=== PATIENT | female | born 1960 | race Caucasian/White ===

== ENCOUNTER → 2016-07-28 | Outpatient (CLI) | payer MEDICARE, OTHER ==
[~2016-07-28] MED LIST: ACETAMINOPHEN PO; ADVAIR; ADVAIR 2501 DISK W/D; ALBUTEROL17 GM INH; ALPRAZOLAM; ALPRAZOLAM PO; AMITRYPTYLINE; AMITRYPTYLINE PO; ATARAX PO; AVELOX400 M1 PO; BACTROBAN15 GM TOP; BACTROBAN22 GM EXT; BD INSULIN MC; CIPRO PO; CIPRO250 MG PO; CLINDAMYCIN PH600 MG IM; COLACE PO; COMBIVENT INH14.7 GM; COMBIVENT U/D3 ML INH; DEPAKOTE PO; DIFLUCAN100 MG PO; DILAUDID PO; DILAUDID2 MG PO; DULCOLAX5 MG PO; DUONEB 2.5-0.5 M3 ML; DUONEB 2.5-0.5 M3 ML NEB; EFFEXOR PO; ELIMITE60 GM TOP; FLAGYL PO; FLEXERIL10 MG PO; GABAPENTIN400 M2 PO; HYDROCODON-ACE1 EAC5 PO; HYDROCODONE-APA1 T41; IBUPROFEN400 MG PO; KCL PO; KLONOPIN; KLONOPIN PO; KLONOPIN2 MG PO; LANTUS100 U/ML; LANTUS100 U/ML SUBQ; LEVAQUIN PO; LEVAQUIN750 MG PO; LEVOTHROID200 MCG PO; LEVOTHYROXINE50 MCG PO; LISINOPRIL2.5 MG PO; LISINOPRIL20 MG PO; LOMOTIL TABLET1 TAB PO; LORCET 10/650 T1 TAB PO; LORTAB 10/500 T1 TAB; LORTAB 5/500 TA1 TA1 PO; LORTAB 5/500 TA1 TA2 PO; MACROBID100 M1 PO; MAPAP325 MG PO; METFORMIN PO; NARCO; NEURONTIN600 MG DOB; NORCO 10/325 TA1 TAB PO; ORUDIS75 M1 DOB; PAXIL PO; PAXIL10 MG PO; PERCOCET 10/3251 TAB PO; PERCOCET PO; PERCOCET10 PO; PERCOCET5/325 PO; PREDNISONE PO; PREMARIN; PREMARIN PO; PROTONIX PO; PROZAC PO; PROZAC10 M1 PO; PYRIDIUM PO; REGLAN PO; SEROQUEL; SEROQUEL PO; SEROQUEL400 MG PO; SYMBICORT INH; SYNTHROID; SYNTHROID PO; VANCOMYCIN1 GM/100 M; VISTARIL PO; XANAX0.5 M1 PO; ZITHROMAX1 G/PKT PO; ZOFRAN PO; [UNRECOGNIZED DRUG - OTHER]; [UNRECOGNIZED DRUG - REMARK]
--- NOTE | ~2016-07-28 | EKG ---
PATIENT: RISHI HIGUERA UNIT #: [id number] Ventricular Rate: 73 BPM Atrial Rate: 73 BPM P-R Interval: 156 ms QRS Duration: 66 ms Q-T Interval: 390 ms QTC Calculation(Bezet): 429 ms P [place]: 75 degrees Calculated R [place]: 27 degrees Calculated T [place]: 53 degrees Diagnosis Line: Normal sinus rhythm Diagnosis Line: Possible Left atrial enlargement Diagnosis Line: Borderline ECG Diagnosis Line: When compared with ECG of 13-SEP-2015 05:19, Diagnosis Line: No significant change was found Diagnosis Line: Confirmed by ALDA DOW MD ([id number]) on Diagnosis Line: 07/28/2016 12:14:55 PM INTERPRETING MD: KEYA
[2016-07-28 13:03] LABS: HEMOGLOBIN 10.9 gm/dL (12.0-16.0); MEAN CELL VOLUME 86.1 FL (83-96); MEAN CORPUSCULAR HEMOGLOBIN 28.5 PG (28-34); MEAN CORPUSCULAR HGB CONC 33.1 g/dL (30-36); MEAN PLATELET VOLUME 8.7 FL (6.5-11.5); RED BLOOD COUNT 3.83 X10e (3.90-5.30); RED CELL DISTRIBUTION WIDTH 15.2 % (11.0-15.5); WHITE BLOOD COUNT 5.8 X10e3 (4.0-10.5)
[2016-07-28 13:53] LABS: ALBUMIN SERUM 3.1 g/dL (3.5-5.0); ALKALINE PHOSPHATASE 84 U/L (32-92); ALT (SGPT) 17 U/L (10-40); AST (SGOT) 25 U/L (10-42); BILIRUBIN,TOTAL 0.3 mg/dL (0.2-2.0); BLOOD UREA NITROGEN 17 mg/dL (9-23); BUN/CREATININE RATIO 21.25; CALCIUM SERUM 8.4 mg/dL (8.4-10.2); CARBON DIOXIDE 29 mmol/L (22-31); CHLORIDE 99 mmol/L (100-111); CREATININE SERUM 0.8 mg/dL (0.6-1.4); GLOM FILT RATE Estimated ABOVE60 mL/min (>60); GLUCOSE FASTING 91 mg/dL (70-110); POTASSIUM 4.2 mmol/L (3.5-5.1); PROTEIN TOTAL SERUM 7.5 g/dL (6.0-8.3); SODIUM 134 mmol/L (135-145)
== END | disposition home or self-care (01) ==
LOC: CAMB 11:38
PROVIDERS: Specialist
DX: Z01.818 Encounter for other preprocedural examination (principal); K43.2 Incisional hernia without obstruction or gangrene
CPT/HCPCS: 36415; 80053; 85027; 93005

== ENCOUNTER 2016-08-01 22:13 | Inpatient (IN) | payer MEDICARE, OTHER ==
--- NOTE | ~2016-08-01 | CO ---
Unit #: [id number] #: [id number] Patient: RISHI HIGUERA [id number] [address] [place], [place] [address] [id number] I MR#: [id number] NAME: RISHI HIGUERA ROOM: [facility] Age: 56 Sex: F Admission Date: 08/02/2016 : 1960 Attending Physician: Pj Flores M.D. Primary Care Physician: Heather Benoit M.D. Consultation Date: 08/02/2016 CONSULTATION REPORT PRIMARY REASON FOR CONSULTATION Small bowel obstruction. HISTORY OF PRESENT ILLNESS The patient is a 56-year-old woman, who presents to the emergency room with what she states has a 2-week history of abdominal pain. She has had nausea and vomiting as well. She states the pain has become progressively worse. It is relieved by nothing and exacerbated with movement. She has had diarrhea as well. She has a known ventral hernia and was scheduled to be repaired by Dr. Marcus this Wednesday. She does have a significant past medical history of having had a colon resection in the past with colostomy and subsequent colostomy reversal. She also has a history of IV heroin abuse. PAST MEDICAL HISTORY As above. She also has a history of bilateral carpal tunnel surgery, hysterectomy, tonsillectomy, nasal surgery, , right leg fasciotomy in 2005. She is status post cystoscopy. She has a history of bipolar as well as illegal drug abuse. REVIEW OF SYSTEMS A 10-point review is performed. This is negative other than what was already listed in the history of present illness. SOCIAL HISTORY She is a smoker and she does use IV heroin. She denies alcohol abuse. FAMILY HISTORY Noncontributory. MEDICATIONS See her MAR. ALLERGIES She is allergic to penicillin, cephalosporins, sulfa drugs, codeine, Keflex. PHYSICAL EXAMINATION GENERAL: She is alert, complaining of abdominal discomfort. VITAL SIGNS: Temperature is 97.7, pulse 110, respirations 20, blood pressure 142/90. She is 97% saturated on room air. HEENT: Pupils are equal and round. Extraocular motions are intact. NECK: Supple without adenopathy. HEART: Regular rate and rhythm. Unit #: [id number] #: [id number] Patient: RISHI HIGUERA LUNGS: Clear to auscultation anteriorly. ABDOMEN: Soft. She has a rather large complex mid ventral hernia, which is soft and reducible. She is tender to palpation with voluntary guarding. EXTREMITIES: Negative for clubbing, cyanosis, or edema. NEUROLOGIC: Negative focal sensory or motor deficits. SKIN: Warm and dry. DIAGNOSTIC STUDIES LABORATORY RESULTS: Significant for a sodium of 127, BUN of 30, creatinine 0.9. White blood cell count is 15.7, hemoglobin is 17.5, and platelets are 339. UA is benign other than having protein. IMAGING STUDIES: CT scan shows distal small bowel obstruction, possibly at the level of a previous ileocolic anastomosis. She does have some retroperitoneal adenopathy as well. ASSESSMENT AND PLAN The patient with small bowel obstruction, possibly secondary to adhesions. We are placing the nasogastric tube. She does not defervesce quickly. We will consider small bowel follow-through. Dictated by... Smith Servin/azeb TD: 08/03/2016 05:54 JOB #: [id number] CONSULTATION REPORT X Pj Flores X CONSULTATION REPORT
--- NOTE | ~2016-08-01 | A ---
[facility] Nutrition Therapy DATE: 08/06/16 Patient: RISHI Barber KALEN Physician: LILYCHR Address: [address] Room/Bed: [address] [place] [address], Zip: [place] [address] Admit Date: 08/04/16 Date of : [birth year] Height: 5 6 Weight: 134 61.23 NUTRITIONAL ASSESSMENT: REASON: Consult re: recommend PO supplements Admitting Dx: 56 y/o female admitted with N/V/D PMH: 06/17/16 H&P: Diverticular disease s/p colostomy with reversal, Bipolar disorder, chronic Hep C, hernia, 1 ppd smoker x 40 years, substance abuse, hypothyroidism Anthropometrics: Ht: 66", Wt: 134 lbs, BMI: 21 Past weights: 150-162 lbs (2014), 141 lbs (06/18/2016) Labs: Na 129, Glucose 132, POC 111-124, Phos 1.9, Prealbumin 7.8 Meds: Zofran, K-phos, PPI, Synthroid, D5 1/2 NS w/KCL @ 125 ml/hr, NACL, Ativan, Lovenox I/O & Bowel function: LBM 3/9 per patient, no N/V at this time, NGT has been D/C, tender distended abdomen Skin Integrity: Closed surgical incision midline abdomen, scabs/scars noted, no edema Assessment: Chart reviewed, events noted. Patient found to have SBO, has hx at [facility], lives with sister, on 2L nasal cannula. See admitting dx and PMH as stated above. POD #2 Exlap with lysis of adhersions and ventral hernia repair. BERNARD previously assessed this patient on 08/25/14, the patient was on TPN at that time and weighed 162 lbs. Although she scored 0 points on the malnutrition risk score her past weights in [facility] reflect a slow, gradual weight loss of approx. 16-28 lbs in the past 2 years. Her NGT has been discontinued and she was started on a full liquid diet this morning, RD consulted to provide ONS recs. Patient states she had a BM today, denies N/V. She was resting during interview with BERNARD and never had eye to eye communication, was cooperative but seemed somewhat uninterested in nutrition discussion, likely due to pain from recent surgery. Agreed to try vanilla or chocolate Ensure, only wanting BID at this time. RD will order and follow-up for further diet advancement and nutritional needs. See recs below. Dx: Inadequate oral intake r/t clinical dx, diet not yet advanced AEB full liquid diet, need for ONS. Intervention: Advance diet as tolerated, Ensure BID Monitoring, Evaluation and Goals: 1. Tolerance of diet advancement with minimal c/o N/V/D. 2. Adequate supplement intake: 100% BID. [facility] Nutrition Therapy DATE: 08/06/16 Patient: RISHI Barber KALEN Physician: LILYCHR Address: [address] [place] [address] ROAD Room/Bed: [address] [place] [address], Zip: [place] [address] Admit Date: 08/04/16 Date of : [birth year] Height: 5 6 Weight: 134 61.23 3. Prevent unintentional weight loss. 4. Labs WNL. Monitor: Per protocol, criteria to determine if above goals met Recommendations: 1. Once the patient is tolerating a full liquid diet for 24 hours advance to GI soft diet and then regular diet as tolerated. Encourage small, frequent meals. 2. RD ordered Ensure Enlive BID to increase oral kcal/protein intake per consult request, please send in vanilla or chocolate. 3. Replace lytes prn (Phos low). Fluids per MD noting hyponatremia. 4. Continue prn Zofran. RD will follow hospital course Moderate nutrition risk Respectfully, Alison Beckham RD, LD [facility] cc: client file
--- NOTE | ~2016-08-01 | DS ---
Unit #: [id number] #: [id number] Patient: RISHI SALEH [id number] [place] [id number] [facility]. [place], [place] [address] [id number] I MR#: [id number] NAME: RISHI SALEH. ROOM: [facility] Age: 56 Sex: F Admission Date: 08/04/2016 : 1960 Discharge Date: 08/08/2016 Attending Physician: Pj Flores M.D. Primary Care Physician: Heather Benoit M.D. DISCHARGE SUMMARY HISTORY AND HOSPITAL COURSE Ms. Saleh is a 56-year-old female who was known to our office from previous hospitalizations. She was scheduled for an elective outpatient incisional hernia repair but presented to the hospital with nausea and vomiting and, on CT scan, appeared to have a small bowel obstruction. She was admitted and hydrated and then subsequently taken to the operating room where she underwent lysis of adhesions and incisional hernia repair. She was kept in the hospital postoperatively until she regained bowel function. She remained afebrile and hemodynamically stable throughout. Her laboratories were unremarkable. Once she got return of bowel function, was able to be quickly advanced on her diet. She was ambulating unassisted and her wound is healing without evidence of complication. The other problem with Ms. Santiago is that she has some mental illness and she had quit taking her medications prior to her hospitalization and she was found to be profoundly hyperthyroid. We resumed her thyroid medication and got Dr. Gabriel from Endocrinology to see her and, as her thyroid hormone has been replaced, she has had a marked improvement in her wellbeing and mental status. Today, at the time of discharge, I have written prescriptions for all of her medications and she currently does not have a primary care physician because her previous primary care physician and she did not get another. So, once she follows up in the office, I will get her referred to a new primary care physician. Today, She will be able to be discharged home in stable condition. She can take a diet as tolerated. She can ambulate ad waldemar but do no lifting or strenuous activity. This was explained in detail to patient. She may shower but not submerge her wound under water. She can use a laxative if needed. She is to call the office and follow up in one to two weeks. She is a frequent visitor to the office so she knows how to get in touch with us. Prescriptions for Percocet, Paxil, Seroquel and Synthroid were left on the chart. Medication reconciliation was completed. The patient understood these instructions and will be discharged home in stable condition. Dictated by... Smith Templeton/franki TD: 08/10/2016 06:14 JOB #: [id number] Unit #: [id number] #: [id number] Patient: RISHI SALEH DISCHARGE SUMMARY X Donaldo Marcus MD X DISCHARGE SUMMARY
--- NOTE | ~2016-08-01 | CR7 ---
[facility] A Service of [facility] & [facility] RADIOLOGY TEXT RESULTS PATIENT: RISHI HIGUERA LOCATION: [facility] 454-01 : [birth year] UNIT #: [id number] AGE: [address]: Pj Flores SEX: F ORDER DR: [id number] [facility] [address] [place], [place] [address] [id number] I MR#: [id number] Acc #: [id number] NAME: RISHI HIGUERA : 1960 SEX: F STUDY DATE/TIME: 08/02/2016 03:35 UNIT: [facility] ROOM: [facility] STUDY DESCRIPTION: CR Abdomen Single AP View Attending Physician: Pj Flores M.D. Primary Care Physician: Heather Benoit M.D. MEDICAL IMAGING REPORT This report is preliminary unless electronic signature is present EXAM KUB 08/02 at 03:35 hours INDICATIONS Nausea, vomiting and diarrhea. Small bowel obstruction. FINDINGS Supine view of the abdomen and pelvis is compared with CT scan from earlier today. There is excreted contrast in the urinary bladder. Distended small bowel loop is noted in the left mid abdomen and the stomach appears distended. Consider NG tube placement. Overall, the bowel gas pattern is not appreciably changed in the short interval. Dictated by... Donaldo Lerma Jr., M.D. THIS IS AN ELECTRONICALLY VERIFIED REPORT Donaldo Lerma Jr., M.D. at 08/02/2016 9:33 PM IKE/sukh TD: 08/02/2016 17:03 JOB #: [id number] MEDICAL IMAGING REPORT COPY
--- NOTE | ~2016-08-01 | CR6 ---
[facility] A Service of [facility] & [facility] RADIOLOGY TEXT RESULTS PATIENT: RISHI HIGUERA LOCATION: [place] [address] : [birth year] UNIT #: [id number] AGE: [address]: Pj Flores SEX: F ORDER DR: [id number] [facility] [address]. [place], [place] [address] [id number] I MR#: [id number] Acc #: [id number] NAME: RISHI HIGUERA : 1960 SEX: F STUDY DATE/TIME: 08/02/2016 16:13 UNIT: [facility] ROOM: [facility] STUDY DESCRIPTION: CR Abdomen Portable Sng View Attending Physician: Pj Flores M.D. Ordering Physician: Pj Flores M.D. Primary Care Physician: Heather Benoit M.D. MEDICAL IMAGING REPORT This report is preliminary unless electronic signature is present EXAM Portable abdomen HISTORY NG tube placement. FINDINGS Portable radiograph of the upper abdomen including the chest demonstrates NG tube extends into the stomach and is curled in the left upper quadrant with its tip in the gastric fundus 20 cm beyond the EG junction. Hequ-xy-ctocshnn gaseous distension of small bowel loops in the left upper quadrant and mid upper abdomen measuring up to approximately 4.5 cm are similar to abdomen x-ray earlier today and could be due to small bowel obstruction or small bowel ileus. The exam does not include the lower abdomen or pelvis. Dictated by... Anant Noonan M.D. THIS IS AN ELECTRONICALLY VERIFIED REPORT Anant Noonan M.D. at 08/03/2016 2:19 PM NABILA/neel TD: 08/03/2016 10:13 JOB #: [id number] MEDICAL IMAGING REPORT COPY
--- NOTE | ~2016-08-01 | OR ---
Unit #: [id number] #: [id number] Patient: RISHI HIGUERA [id number] [address] [place], [place] [address] [id number] I MR#: [id number] NAME: RISHI HIGUERA ROOM: [facility] Date of Procedure: 08/04/2016 Admission Date: 08/04/2016 Surgeon: Donaldo Marcus M.D. : 1960 Attending Physician: Pj Flores M.D. Primary Care Physician: Heather Bneoit M.D. OPERATIVE REPORT PREOPERATIVE DIAGNOSES Incisional ventral hernia with small bowel obstruction. POSTOPERATIVE DIAGNOSES Incisional ventral hernia with small bowel obstruction. PROCEDURES PERFORMED Exploratory laparotomy with extensive lysis of adhesions for about 60 minutes with repair of incisional ventral hernia with a 20 x 25 cm skirted intraperitoneal mesh. ANESTHESIA General endotracheal anesthesia. ESTIMATED BLOOD LOSS 100 mL. INDICATIONS FOR PROCEDURE A 56-year-old female, who has had multiple previous abdominal operations due to some ischemic colitis. She had a known incisional ventral hernia that was reducible and she was scheduled for outpatient repaired. Over the weekend, she developed nausea and vomiting and came to the emergency room and was found to have a small-bowel obstruction. After hydration and correction of electrolytes, she is brought to the operating room today for definitive repair. DESCRIPTION OF PROCEDURE The patient was transported from her hospital room to the operating room, and after induction of general endotracheal anesthesia, she received antibiotics per SCIP protocol. SCDs were placed and a Acharya catheter was placed. She was prepped and draped in usual sterile fashion. Her midline incision was opened. We dissected down through the soft tissues and entered the peritoneal cavity. Her hernia was reduced. The hernia was not causing the bowel obstruction. Once I completely opened the fascia throughout the extent of the incision, we began eviscerating markedly dilated proximal small bowel and as we eviscerated, we identified collapsed distal bowel. As we ran the bowel back to the area of transition, there was a very thick scar tissue band with twisting of the mesentery that supplied the distal small bowel. This was able to be released with suture scissors and that relieved the obstruction; however in running the bowel, there were multiple interloop adhesions which we took down and we inspected all bowel surfaces to ensure that there were no Unit #: [id number] #: [id number] Patient: RISHI HIGUERA areas of injury, ischemia, or enterotomy. There was one area, where the small bowel had become adherent to the site of her old colostomy takedown site and we dissected this off there was some serosal injury, but no enterotomy. I oversewed this with 3-0 silk interrupted sutures since this area was already dilated to prevent any future perforation. We then ran the bowel from the ligament of Treitz to the ileocolonic anastomosis. The bowel was intact and the adhesions had been freed and the obstruction had been resolved. I then irrigated the peritoneal cavity copiously and there was good hemostasis. I took down the falciform ligament. I palpated the rectosigmoid and there was stool in the rectosigmoid, but no evidence of obstruction. After completion of the exploratory lap, it should be mentioned that upon opening the peritoneal cavity, we suctioned out 1300 mL of ascites. The NG tube was well positioned and no other abnormalities were noted on exploratory lap. I then removed the hernia sac from the abdominal wall and freed up the fascia circumferentially underneath the wound. Once all the fascia had been dissected out and freed up, I tried this to develop a preperitoneal plane for a submuscular placement of mesh, but this plane had been disrupted from multiple abdominal operations and was not a viable option. For that reason, after the fascia had been completely freed up circumferentially around the fascial opening, I measured the defect and then chose a 20 x 25 cm skirted mesh. It was placed intraperitoneally. It was secured at 12 o'clock, 3 o'clock, 6 o'clock, and 9 o'clock with a through and through #1 Vicryl suture. Once the mesh had been adequately positioned with the sutures in the skirted pocket, the mesh was secured circumferentially to the fascia with the SecureStrap stapling device. The mesh was well positioned with no openings or defects where bowel could herniate above the mesh. The midline fascia was then closed with #1 Vicryl [id number]-st-btwld sutures with some of the sutures passing through the mesh to minimize seroma formation. Once the fascia was closed, the skin edges were freshened up and also to decrease the amount of subcutaneous space. The dermis was then approximated with 2-0 Vicryl interrupted suture and the skin was approximated with sterile skin nery. Dry sterile dressings were placed. Sponges and needle counts were correct x3. The patient tolerated the procedure well and transported to recovery in stable condition. Findings and postoperative expectations were discussed with the lady, who came to visit her. Dictated by... Smith Templeton/azeb TD: 08/04/2016 23:32 JOB #: [id number] OPERATIVE REPORT X Donaldo Marcus MD X PROCEDURE OPERATIVE NOTE
--- NOTE | ~2016-08-01 | CO ---
Unit #: [id number] #: [id number] Patient: RISHI HIGUERA [id number] [address] [place], [place] [address] [id number] I MR#: [id number] NAME: RISHI HIGUERA. ROOM: [facility] Age: 56 Sex: F Admission Date: 08/04/2016 : 1960 Attending Physician: Pj Flores M.D. Primary Care Physician: Heather Benoit M.D. Consultation Date: 08/04/2016 CONSULTATION REPORT REASON FOR CONSULTATION Hypothyroidism. HISTORY OF PRESENT ILLNESS This is a 56-year-old female, who has history of multiple medical problems been admitted with the small-bowel obstruction. She underwent exploratory laparotomy with lysis of adhesion and hernia repair. On her labs, she was found to have the abnormal thyroid function test. The TSH is 27. The patient reports that she was at some point taking some thyroid medicine, but she has not been taking for several months. PAST MEDICAL HISTORY Hypothyroidism, bipolar disorder, hepatitis C, diverticular disease, and mild hypertension. PAST SURGICAL HISTORY Total abdominal hysterectomy, history of colostomy in the past, . The patient has history of past exploratory laparotomy with lysis of adhesions. SOCIAL HISTORY Lives with her sister. Continues to smoke a pack per day. No alcohol. FAMILY HISTORY Noncontributory. ALLERGIES Penicillin, cephalosporin, sulfa, codeine, and Keflex. HOME MEDICATIONS Current medication list is reviewed. REVIEW OF SYSTEMS A 10-point review of system is unremarkable except as noted in HPI. PHYSICAL EXAMINATION GENERAL: She is awake, alert, oriented to time, place, and person. She is comfortable, in no acute distress. VITAL SIGNS: Temperature 98.7, pulse is 102, blood pressure 150/90. HEENT: EOMI. Pupils are equally reactive to light. NECK: Supple. No thyromegaly noted. CHEST: Good air entry. CVS: Regular rhythm. No murmurs. ABDOMEN: No bowel sounds. Unit #: [id number] #: [id number] Patient: RISHI HIGUERA EXTREMITIES: No edema or ulcers are noted. DIAGNOSTIC STUDIES LABORATORY RESULTS: TSH is 27.5, free T4 0.30. ASSESSMENT Primary hypothyroidism. PLAN The patient is n.p.o. At this point, we will start the patient on IV levothyroxine 50 mcg daily. Once the patient is able to tolerate p.o. levothyroxine will be switched to p.o. and to be followed as an outpatient. Dictated by... Smith Uribe/azeb TD: 08/05/2016 01:39 JOB #: [id number] CONSULTATION REPORT X Becca Gabriel MD X CONSULTATION REPORT
--- NOTE | ~2016-08-01 | CO ---
Unit #: [id number] #: [id number] Patient: RISHI HIGUERA [id number] [address] [place], [place] [address] [id number] MR#: [id number] NAME: RISHI HIGUERA. ROOM: [facility] Age: 56 Sex: F Admission Date: 08/02/2016 : 1960 Attending Physician: Pj Flores M.D. Primary Care Physician: Heather Benoit M.D. Consultation Date: 08/03/2016 CONSULTATION REPORT BRIEF HISTORY The patient is a 56-year-old lady, who presents with nausea, vomiting, loose bowel movements, now decreased bowel function over the last 3 to 4 days. She has had diarrhea over the last 7 days. She was to have hernia surgery on Wednesday. She denies any bright red blood per rectum. No hematemesis. PAST MEDICAL HISTORY Complex. She does have a history of respiratory disorder. PAST SURGICAL HISTORY She had a hysterectomy, a tonsillectomy, colostomy with reversal, section, left leg fasciotomy. HOME MEDICATIONS Paxil, Seroquel, levothyroxine, ibuprofen, Percocet. SOCIAL HISTORY Does smoke a pack per day. No alcohol. FAMILY HISTORY Negative for GI malignancy. REVIEW OF SYSTEMS No cardiopulmonary complaints at this time. Else, 10 systems reviewed and negative. PHYSICAL EXAMINATION GENERAL: She is awake, alert, appropriate. VITAL SIGNS: Currently afebrile, blood pressure 142/90. HEENT: Unremarkable. NECK: Supple. No JVD. Trachea midline. LUNGS: Clear to auscultation. Bilateral breath sounds symmetric. CARDIOVASCULAR: Regular rate and rhythm. ABDOMEN: Distended, but minimally tender. There is a complex ventral hernia within the midline. This appears to be reducible. EXTREMITIES: No clubbing, cyanosis, or edema. DIAGNOSTIC STUDIES LABORATORY RESULTS: Show a white count of 12, hemoglobin of 11.9. IMAGING STUDIES: CT scan shows high-grade small bowel obstruction. ASSESSMENT Unit #: [id number] #: [id number] Patient: RISHI HIGUERA 1. Small-bowel obstruction. 2. Complex ventral hernia. PLAN Recommend small-bowel followthrough to confirm small-bowel obstruction. We will consider operative management to repair her hernia. We will maximize her medical stability. Dictated by... Smith Leach/azeb TD: 08/03/2016 08:19 JOB #: [id number] CONSULTATION REPORT X Rosalio Madden MD X CONSULTATION REPORT
--- NOTE | ~2016-08-01 | CR72 ---
[facility] A Service of [facility] RADIOLOGY TEXT RESULTS PATIENT: RISHI HIGUERA LOCATION: [place] [address] : [birth year] UNIT #: [id number] AGE: [address]: Pj Flores SEX: F ORDER DR: [id number] [facility] [address] [place], [place] [address] [id number] I MR#: [id number] Acc #: [id number] NAME: RISHI HIGUERA : 1960 SEX: F STUDY DATE/TIME: 08/02/2016 15:21 UNIT: [facility] ROOM: [facility] STUDY DESCRIPTION: CR Chest Single View Portable Attending Physician: Pj Flores M.D. Ordering Physician: Riana Hinds M.D. Primary Care Physician: Heather Benoit M.D. MEDICAL IMAGING REPORT This report is preliminary unless electronic signature is present EXAM Portable chest x-ray HISTORY Decreased "NA". Decreased sodium, bowel obstruction, nausea, vomiting, diarrhea, hernia surgery . TECHNIQUE AP left anterior-oblique view of the chest is presented. COMPARISON 09/13/2015 FINDINGS Right upper extremity approach PICC terminates in superior vena cava. Heart normal in size. Mediastinal contours within normal limits. Increased linear interstitial densities at the bilateral lung bases more pronounced on right than left. There are some patchy densities at the right lung base as well. No dense airspace disease, pleural effusion, or pneumothorax. No suspicious nodule. Appearance of the lung bases raises the possibility of mild pulmonary edema with interstitial and right basilar airspace components. Bibasilar somewhat atypical-appearing pneumonia could be considered. Correlate with the patient's clinical status. Followup to radiographic resolution is recommended. There is no pleural effusion or pneumothorax and no suspicious nodule. Dictated by... Rosalio Cooney M.D. THIS IS AN ELECTRONICALLY VERIFIED REPORT Rosalio Cooney M.D. at 08/03/2016 4:25 PM JSK/arabella [facility] A Service of [facility] RADIOLOGY TEXT RESULTS PATIENT: RISHI HIGUERA LOCATION: [facility] 470[address]01 : [birth year] UNIT #: [id number] AGE: [address]: Pj Flores SEX: F ORDER DR: TD: 08/03/2016 08:30 JOB #: [id number] MEDICAL IMAGING REPORT COPY
--- NOTE | ~2016-08-01 | CR236 ---
[facility] A Service of [facility] RADIOLOGY TEXT RESULTS PATIENT: RISHI HIGUERA LOCATION: [facility] 470-01 : [birth year] UNIT #: [id number] AGE: [address]: Pj Flores SEX: F ORDER DR: [id number] [facility] [address] [facility] [place], [place] [address] [id number] I MR#: [id number] Acc #: [id number] NAME: RISHI HIGUERA : 1960 SEX: F STUDY DATE/TIME: 08/03/2016 11:44 UNIT: [facility] ROOM: [facility] STUDY DESCRIPTION: CR Small Bowel Sbft W Films Attending Physician: Pj Flores M.D. Ordering Physician: Rosalio Madden M.D. Primary Care Physician: Heather Benoit M.D. MEDICAL IMAGING REPORT This report is preliminary unless electronic signature is present EXAM Small bowel series. INDICATIONS Small bowel obstruction seen on CT scan yesterday with nausea and vomiting. FINDINGS Preliminary limb driver film showed dilated small bowel loops in the mid abdomen. The colon appears collapsed. A nasogastric tube is present. Barium was placed through the nasogastric tube and the patient began vomiting. She then refused any additional contrast administration. Images were obtained at 90 minutes, 2.5 hours, and 4 hours and 10 minutes and all the barium present was still in the stomach. IMPRESSION This is basically a nondiagnostic study because enough contrast could not be placed into the stomach to provide opacification of the small bowel. There is marked distension of the small bowel loops on the plain films and CT scan yesterday to indicate a high-grade small bowel obstruction. Fluoro was not utilized for this exam. Dictated by... Tobias Flannery M.D. THIS IS AN ELECTRONICALLY VERIFIED REPORT Tobias Flannery M.D. at 08/04/2016 7:13 AM FEL/psc TD: 08/03/2016 22:29 JOB #: [id number] MEDICAL IMAGING REPORT [facility] A Service of [facility] RADIOLOGY TEXT RESULTS PATIENT: RISHI HIGUERA [address] [id number] : [birth year] UNIT #: [id number] AGE: [address]: Pj Flores SEX: F ORDER DR: COPY
--- NOTE | ~2016-08-01 | CT2 ---
[facility] A Service of [facility] RADIOLOGY TEXT RESULTS PATIENT: RISHI HIGUERA LOCATION: [facility] 454-01 : [birth year] UNIT #: [id number] AGE: [address]: Pj Flores SEX: F ORDER DR: [id number] [facility] [address] [place], [place] [address] [id number] I MR#: [id number] Acc #: [id number] NAME: RISHI HIGUERA : 1960 SEX: F STUDY DATE/TIME: 08/02/2016 00:16 UNIT: C4B ROOM: [facility] STUDY DESCRIPTION: CT Abd and Pelv W Cont Attending Physician: Pj Flores M.D. Ordering Physician: Donaldo Diallo M.D. Primary Care Physician: Heather Benoit M.D. MEDICAL IMAGING REPORT This report is preliminary unless electronic signature is present EXAM CT abdomen and pelvis, 08/02 at 00:16 hours INDICATION Nausea, vomiting and diarrhea for 1 week. TECHNIQUE Axial images were obtained through the abdomen and pelvis following IV contrast administration. Multiplanar reformats were obtained. This CT exam was performed with one or more of the following radiation dose reduction techniques: automatic exposure control, adjustment of mA and/or kV according to patient size, and iterative reconstruction. COMPARISON 06/17/2016 FINDINGS ABDOMEN: There is some chronic scarring or atelectasis in the left lower lobe and right middle lobe. The appearance of both lung bases is improved since the prior study. Gallbladder is within normal limits. Solid abdominal organs are normal. There are some mildly prominent retroperitoneal lymph nodes including an aortocaval node measuring 1.0 x 1.5 cm. These are of questionable significance. The IVC is flattened which may indicate dehydration. Correlate clinically. There is a small volume of ascites. Small bowel obstruction is present. Multiple fluid and gas-filled distended small bowel loops are seen throughout the abdomen. A left mid abdominal loop measures up to 3.9 cm in diameter. The patient is status post subtotal colectomy. There is a left lower abdominal ileocolic anastomosis. This anastomosis may be the site of obstruction. However, the patient also has ventral wall hernias which contain fluid filled small bowel loops that are dilated. The hernia is not definitively the obstructing point. Stool is noted in the remaining STS. [facility] A Service of [facility] RADIOLOGY TEXT RESULTS PATIENT: RISHI HIGUERA LOCATION: [place] [address] : [birth year] UNIT #: [id number] AGE: [address]: Pj Flores SEX: F ORDER DR: lower colon except for the rectum which is filled with fluid. PELVIS: Urinary bladder is normal. Uterus is surgically absent. Redemonstrated are right side inguinal enlarged lymph nodes. These are relatively stable. They remain nonspecific. There are some mildly prominent lymph nodes in the right side of the pelvis as well which are also grossly stable. There is fairly pronounced degenerative disease in the lumbar spine with stable spondylolisthesis at L4-5 which is grade 1. IMPRESSION 1. High-grade distal small bowel obstruction. The point of obstruction may be the ileocolic anastomosis in the left mid abdomen. Patient is status post subtotal colectomy. The patient does have ventral wall hernias containing fluid filled distended bowel, but these hernias are not definitely the site of obstruction. 2. Interval development of ascites in the abdomen and pelvis. 3. Mild retroperitoneal adenopathy with mild right pelvic sidewall adenopathy and right groin adenopathy. These findings are grossly stable from the recent prior study and are of unknown clinical significance. They may be benign reactive nodes. Attention on followup is recommended as lymphoma is not completely excluded. Large bulky adenopathy is not seen. 4. There is some chronic atelectasis or scarring in the bases, but aeration at the lung bases is improved from the prior study. Dictated by... Donaldo Lerma Jr., M.D. THIS IS AN ELECTRONICALLY VERIFIED REPORT Donaldo Lerma Jr., M.D. at 08/02/2016 9:31 PM IKE/elise TD: 08/02/2016 15:55 JOB #: [id number] MEDICAL IMAGING REPORT COPY
--- NOTE | ~2016-08-01 | CO ---
Unit #: [id number] #: [id number] Patient: RISHI HIGUERA [id number] [address] [place], [place] [address] [id number] I MR#: [id number] NAME: RISHI HIGUERA ROOM: [facility] Age: 56 Sex: F Admission Date: 08/02/2016 : 1960 Attending Physician: Pj Flores M.D. Primary Care Physician: Heather Benoit M.D. Consultation Date: 08/02/2016 CONSULTATION REPORT REASON FOR CONSULTATION Medical management. HISTORY OF PRESENT ILLNESS The patient is a 56-year-old female with a past medical history of diverticular disease, COPD, hepatitis C, bipolar disorder, fibromyalgia, hypothyroidism, hypertension, who presented to the emergency department, who was admitted by Dr. Flores for small bowel obstruction. The patient states that she has had a one week history of abdominal pain, vomiting and diarrhea. She describes the pain as "pain." There are no exacerbating or alleviating factors. She denies any similar pain. She has had more than 10 bouts of nonbloody diarrhea. She reports 5-6 bouts of dark emesis within the past 24 hours. She denies any fever, no chest pain, no cough or cold symptoms. In the emergency department, a CT of the abdomen and pelvis was done and showed findings concerning for high grade small bowel obstruction. She was admitted by Dr. Flores for further evaluation and treatment. HIPS was consulted for medical management. PAST MEDICAL HISTORY 1. Admission to [facility], 06/17/2016 through 06/19/2016 for abdominal pain and right lower extremity cellulitis. 2. Diverticular disease. 3. COPD with continued tobacco abuse. 4. Hepatitis C. 5. Bipolar disorder. 6. Fibromyalgia. 7. Hypothyroidism. 8. Hypertension. PAST SURGICAL HISTORY 1. Total abdominal hysterectomy. 2. Sigmoid colectomy with colostomy. 3. . 4. Fasciotomy right leg for right calf compartment syndrome. 5. Tonsillectomy. 6. Nasal surgery. SOCIAL HISTORY The patient lives with her sister. She smokes a pack of cigarettes daily. There is no alcohol use. FAMILY HISTORY Notable for her mother having rheumatoid arthritis. Unit #: [id number] #: [id number] Patient: RISHI HIGUERA G ALLERGIES Penicillin, cephalosporin, sulfa, codeine, Keflex. HOME MEDICATIONS Paxil, Seroquel, levothyroxine, ibuprofen, Percocet. Home medications will need to be reviewed and verified. REVIEW OF SYSTEMS A complete review of systems is negative except as indicated in the HPI. PHYSICAL EXAMINATION VITAL SIGNS: Temperature is 97.7, pulse 110, respirations 20, blood pressure 142/90. GENERAL: The patient is a female who is awake and alert. HEENT: Head is atraumatic. Mucous membranes are dry. NECK: Supple. Trachea is midline. CARDIOVASCULAR: Regular rate and rhythm. LUNGS: Clear to auscultation bilaterally with no increased work of breathing. ABDOMEN: Soft. She does have a large ventral hernia that is reducible. She is tender to palpation throughout. Bowel sounds are present in all four quadrants. EXTREMITIES: There is no pedal edema. NEUROLOGIC: The patient is awake and alert. She follows commands. PSYCH: The patient is somewhat anxious. She cooperative. SKIN: Skin of examined area is warm and dry. DIAGNOSTIC STUDIES IMAGING STUDIES: CT of the abdomen and pelvis shows high grade small bowel obstruction with retroperitoneal pelvic and groin lymphadenopathy that is stable when compared to prior. LABORATORY STUDIES: Complete blood count notable for white blood cell count of 15.7, hemoglobin and hematocrit 17.5 and 53.6 respectively. Comprehensive metabolic panel notable for a sodium of 127, chloride 87, glucose 148, BUN and creatinine 30 and 0.9 respectively, alk phos 103, total protein 10.3, lipase is 11. Urinalysis notable for 100 protein. ASSESSMENT The patient is a 56-year-old female with: 1. High grade small bowel obstruction. 2. Hyponatremia. The patient's sodium has been as low as 124 on 09/18/2014, it is 127 today. I suspect that this is hypovolemic hyponatremia. 3. Leukocytosis with no obvious infection. 4. Diverticular disease. 5. Lymphadenopathy in the retroperitoneal pelvic and groin areas that is stable when compared to prior. 6. COPD with continued tobacco abuse. 7. Hepatitis C. 8. Bipolar disorder. 9. Fibromyalgia. 10. Hypothyroidism. 11. Hypertension. Unit #: [id number] #: [id number] Patient: RISHI HIGUERA PLAN 1. Regarding hyponatremia, I have ordered urine sodium and osmolalities, as well as serum osmolality. I have also ordered a chest x-ray and normal saline at 125 mL an hour. Will repeat BMP later this evening. 2. Regarding leukocytosis, I have ordered blood cultures. Thank you very much for the consultation. We will follow the patient along closely with you. Dictated by... Riana Hinds M.D. DESI/felipe TD: 08/02/2016 13:27 JOB #: [id number] CONSULTATION REPORT X Riana Hinds MD X CONSULTATION REPORT
[2016-08-01 23:19] LABS: BASOPHIL# 0.1 X10e3 (0-0.3); BASOPHIL% 0.7 % (0-2.5); HEMATOCRIT 53.6 % (35.0-45.0); HEMOGLOBIN 17.5 gm/dL (12.0-16.0); LYMPHOCYTE# 0.9 X10e3 (1.0-3.5); LYMPHOCYTE% 5.9 % (17.0-45.0); MEAN CORPUSCULAR HEMOGLOBIN 27.8 PG (28-34); MEAN CORPUSCULAR HGB CONC 32.6 g/dL (30-36); MEAN PLATELET VOLUME 8.8 FL (6.5-11.5); MONOCYTE# 0.8 X10e3 (0-1.0); MONOCYTE% 5.1 % (3.0-12.0); NEUTROPHIL# 13.9 X10e3 (1.5-7.1); NEUTROPHIL% 88.3 % (40-75); PLATELET COUNT 339 X10e3 (140-420); RED BLOOD COUNT 6.31 X10e (3.90-5.30); RED CELL DISTRIBUTION WIDTH 15.1 % (11.0-15.5); WHITE BLOOD COUNT 15.7 X10e3 (4.0-10.5)
[2016-08-01 23:23] LABS: DIFF IND YES
[2016-08-01 23:44] LABS: PLATELET ESTIMATE NORMAL (NORMAL)
[2016-08-01 23:45] LABS: ANISOCYTOSIS MOD; POIKILOCYTOSIS MOD; POLYCHROMASIA SL
[2016-08-02] LABS: ALBUMIN SERUM 3.5 g/dL (3.5-5.0); ALKALINE PHOSPHATASE 103 U/L (32-92); ALT (SGPT) 15 U/L (10-40); AST (SGOT) 26 U/L (10-42); BILIRUBIN, DIRECT 0.1 mg/dL (0.0-0.2); BILIRUBIN,INDIRECT 0.5 mg/dL (0.0-0.9); BILIRUBIN,TOTAL 0.6 mg/dL (0.2-2.0); BLOOD UREA NITROGEN 30 mg/dL (9-23); BUN/CREATININE RATIO 33.33; CALCIUM SERUM 9.3 mg/dL (8.4-10.2); CARBON DIOXIDE 26 mmol/L (22-31); CHLORIDE 87 mmol/L (100-111); CREATININE SERUM 0.9 mg/dL (0.6-1.4); GLOM FILT RATE Estimated ABOVE60 mL/min (>60); GLUCOSE FASTING 148 mg/dL (70-110); LIPASE 11 U/L (22-51); POTASSIUM 4.5 mmol/L (3.5-5.1); PROTEIN TOTAL SERUM 10.3 g/dL (6.0-8.3); SODIUM 127 mmol/L (135-145)
[2016-08-02 00:17] LABS: URINE APPEARANCE CLEAR; URINE COLOR YELLOW; URINE SOURCE CLEAN CATCH
[2016-08-02 00:18] LABS: URINE LEUKOCYTE ESTERASE NEG (NEG); URINE NITRATE NEG (NEG); URINE PH 5.5 (5-8); URINE PROTEIN 100 (NEG); URINE SPECIFIC GRAVITY 1.027 (1.003-1.035)
[2016-08-02 00:19] LABS: URINE BILIRUBIN NEG (NEG); URINE BLOOD NEG (NEG); URINE GLUCOSE NORM (NEG); URINE KETONE NEG (NEG); URINE UROBILINOGEN 0.2 MG/DL (NEG)
[2016-08-02 00:20] LABS: URBCS1 AUWI 0-2 /[HPF] (0-2); UWBCS1 AUWI 0-2 (0-5)
[2016-08-02 10:38] LABS: BASOPHIL% 0.1 % (0-2.5); HEMATOCRIT 43.3 % (35.0-45.0); LYMPHOCYTE# 0.5 X10e3 (1.0-3.5); MEAN CELL VOLUME 84.6 FL (83-96); MEAN CORPUSCULAR HEMOGLOBIN 27.8 PG (28-34); MEAN CORPUSCULAR HGB CONC 32.9 g/dL (30-36); MEAN PLATELET VOLUME 8.2 FL (6.5-11.5); MONOCYTE# 0.4 X10e3 (0-1.0); NEUTROPHIL# 17.3 X10e3 (1.5-7.1); NEUTROPHIL% 94.9 % (40-75); PLATELET COUNT 311 X10e3 (140-420); RED BLOOD COUNT 5.11 X10e (3.90-5.30); RED CELL DISTRIBUTION WIDTH 15.1 % (11.0-15.5); WHITE BLOOD COUNT 18.2 X10e3 (4.0-10.5)
[2016-08-02 10:39] LABS: DIFF IND NO; HEMOGLOBIN 14.2 gm/dL (12.0-16.0)
[2016-08-02 11:03] LABS: BLOOD UREA NITROGEN 24 mg/dL (9-23); CALCIUM SERUM 8.2 mg/dL (8.4-10.2); CARBON DIOXIDE 25 mmol/L (22-31); CHLORIDE 99 mmol/L (100-111); CREATININE SERUM 0.6 mg/dL (0.6-1.4); GLOM FILT RATE Estimated ABOVE60 mL/min (>60); GLUCOSE FASTING 130 mg/dL (70-110); POTASSIUM 4.7 mmol/L (3.5-5.1); SODIUM 130 mmol/L (135-145)
[2016-08-02 18:59] LABS: BLOOD UREA NITROGEN 23 mg/dL (9-23); BUN/CREATININE RATIO 38.33; CALCIUM SERUM 7.8 mg/dL (8.4-10.2); CARBON DIOXIDE 24 mmol/L (22-31); CHLORIDE 99 mmol/L (100-111); CREATININE SERUM 0.6 mg/dL (0.6-1.4); GLOM FILT RATE Estimated ABOVE60 mL/min (>60); GLUCOSE FASTING 154 mg/dL (70-110); POTASSIUM 4.5 mmol/L (3.5-5.1); SODIUM 127 mmol/L (135-145)
[2016-08-03 03:38] LABS: BASOPHIL% 0.1 % (0-2.5); HEMATOCRIT 35.5 % (35.0-45.0); LYMPHOCYTE# 0.9 X10e3 (1.0-3.5); LYMPHOCYTE% 6.6 % (17.0-45.0); MEAN CELL VOLUME 83.6 FL (83-96); MEAN CORPUSCULAR HEMOGLOBIN 27.9 PG (28-34); MEAN CORPUSCULAR HGB CONC 33.4 g/dL (30-36); MEAN PLATELET VOLUME 8.3 FL (6.5-11.5); MONOCYTE# 1.2 X10e3 (0-1.0); MONOCYTE% 8.5 % (3.0-12.0); NEUTROPHIL# 11.9 X10e3 (1.5-7.1); NEUTROPHIL% 84.8 % (40-75); PLATELET COUNT 293 X10e3 (140-420); RED BLOOD COUNT 4.25 X10e (3.90-5.30); RED CELL DISTRIBUTION WIDTH 14.8 % (11.0-15.5)
[2016-08-03 03:45] LABS: DIFF IND NO; HEMOGLOBIN 11.9 gm/dL (12.0-16.0)
[2016-08-03 04:02] LABS: ALBUMIN SERUM 2.6 g/dL (3.5-5.0); ALKALINE PHOSPHATASE 67 U/L (32-92); ALT (SGPT) 13 U/L (10-40); AST (SGOT) 14 U/L (10-42); BILIRUBIN,TOTAL 0.6 mg/dL (0.2-2.0); BLOOD UREA NITROGEN 22 mg/dL (9-23); CALCIUM SERUM 8.1 mg/dL (8.4-10.2); CARBON DIOXIDE 25 mmol/L (22-31); CHLORIDE 99 mmol/L (100-111); CREATININE SERUM 0.5 mg/dL (0.6-1.4); GLOM FILT RATE Estimated ABOVE60 mL/min (>60); GLUCOSE FASTING 113 mg/dL (70-110); POTASSIUM 4.6 mmol/L (3.5-5.1); SODIUM 131 mmol/L (135-145)
[2016-08-03 15:02] LABS: HEMATOCRIT 37.1 % (35.0-45.0); HEMOGLOBIN 12.1 gm/dL (12.0-16.0)
[2016-08-04 03:35] LABS: BASOPHIL# 0.1 X10e3 (0-0.3); BASOPHIL% 0.5 % (0-2.5); EOSINOPHIL% 0.1 % (0.0-7.0); HEMATOCRIT 36.6 % (35.0-45.0); LYMPHOCYTE# 1.2 X10e3 (1.0-3.5); LYMPHOCYTE% 9.9 % (17.0-45.0); MEAN CELL VOLUME 84.9 FL (83-96); MEAN CORPUSCULAR HEMOGLOBIN 27.9 PG (28-34); MEAN CORPUSCULAR HGB CONC 32.8 g/dL (30-36); MEAN PLATELET VOLUME 7.9 FL (6.5-11.5); MONOCYTE# 0.9 X10e3 (0-1.0); MONOCYTE% 7.2 % (3.0-12.0); NEUTROPHIL# 10.2 X10e3 (1.5-7.1); NEUTROPHIL% 82.3 % (40-75); PLATELET COUNT 312 X10e3 (140-420); RED BLOOD COUNT 4.31 X10e (3.90-5.30); RED CELL DISTRIBUTION WIDTH 14.9 % (11.0-15.5); WHITE BLOOD COUNT 12.4 X10e3 (4.0-10.5)
[2016-08-04 03:36] LABS: DIFF IND NO
[2016-08-04 03:54] LABS: INR 1.2; PROTHROMBIN TIME (PATIENT) 12.2 SECONDS (9.6-11.5)
[2016-08-04 03:57] LABS: BLOOD UREA NITROGEN 16 mg/dL (9-23); CALCIUM SERUM 7.9 mg/dL (8.4-10.2); CARBON DIOXIDE 25 mmol/L (22-31); CHLORIDE 100 mmol/L (100-111); CREATININE SERUM 0.5 mg/dL (0.6-1.4); GLOM FILT RATE Estimated ABOVE60 mL/min (>60); GLUCOSE FASTING 85 mg/dL (70-110); MAGNESIUM 2.1 mg/dL (1.6-3.0); POTASSIUM 3.3 mmol/L (3.5-5.1); SODIUM 134 mmol/L (135-145)
[2016-08-04 04:16] LABS: THYROID STIMULATING HORMONE 27.57 uIU/ml (0.34-5.60)
[2016-08-04 04:23] LABS: FREE THYROXIN (T4) 0.3 ng/dL (0.58-1.64)
[2016-08-04 11:46] LABS: HEMATOCRIT 34.2 % (35.0-45.0); HEMOGLOBIN 11.3 gm/dL (12.0-16.0)
[2016-08-04 12:29] LABS: BLOOD UREA NITROGEN 15 mg/dL (9-23); CALCIUM SERUM 7.7 mg/dL (8.4-10.2); CARBON DIOXIDE 24 mmol/L (22-31); CHLORIDE 99 mmol/L (100-111); CREATININE SERUM 0.4 mg/dL (0.6-1.4); GLOM FILT RATE Estimated ABOVE60 mL/min (>60); GLUCOSE FASTING 103 mg/dL (70-110); POTASSIUM 3.4 mmol/L (3.5-5.1); SODIUM 132 mmol/L (135-145)
[2016-08-05 05:47] LABS: BASOPHIL% 0.1 % (0-2.5); HEMATOCRIT 32.3 % (35.0-45.0); HEMOGLOBIN 10.5 gm/dL (12.0-16.0); LYMPHOCYTE% 8.5 % (17.0-45.0); MEAN CORPUSCULAR HEMOGLOBIN 27.4 PG (28-34); MEAN CORPUSCULAR HGB CONC 32.6 g/dL (30-36); MONOCYTE# 0.9 X10e3 (0-1.0); MONOCYTE% 8.2 % (3.0-12.0); NEUTROPHIL# 9.4 X10e3 (1.5-7.1); NEUTROPHIL% 83.2 % (40-75); PLATELET COUNT 332 X10e3 (140-420); RED BLOOD COUNT 3.84 X10e (3.90-5.30); RED CELL DISTRIBUTION WIDTH 14.8 % (11.0-15.5); WHITE BLOOD COUNT 11.3 X10e3 (4.0-10.5)
[2016-08-05 05:52] LABS: DIFF IND NO
[2016-08-05 06:33] LABS: ALBUMIN SERUM 2.6 g/dL (3.5-5.0); ALKALINE PHOSPHATASE 51 U/L (32-92); ALT (SGPT) 10 U/L (10-40); AST (SGOT) 15 U/L (10-42); BILIRUBIN,TOTAL 0.6 mg/dL (0.2-2.0); BLOOD UREA NITROGEN 11 mg/dL (9-23); BUN/CREATININE RATIO 18.33; CALCIUM SERUM 7.9 mg/dL (8.4-10.2); CARBON DIOXIDE 27 mmol/L (22-31); CHLORIDE 99 mmol/L (100-111); CREATININE SERUM 0.6 mg/dL (0.6-1.4); GLOM FILT RATE Estimated ABOVE60 mL/min (>60); GLUCOSE FASTING 165 mg/dL (70-110); MAGNESIUM 2.1 mg/dL (1.6-3.0); PHOSPHOROUS 2.1 mg/dL (2.5-4.6); POTASSIUM 3.9 mmol/L (3.5-5.1); PREALBUMIN 7.8 mg/dL (17.0-42.0); PROTEIN TOTAL SERUM 6.4 g/dL (6.0-8.3); SODIUM 136 mmol/L (135-145)
[2016-08-06 03:06] LABS: HEMATOCRIT 29.9 % (35.0-45.0); HEMOGLOBIN 10.1 gm/dL (12.0-16.0); MEAN CELL VOLUME 83.9 FL (83-96); MEAN CORPUSCULAR HEMOGLOBIN 28.2 PG (28-34); MEAN CORPUSCULAR HGB CONC 33.6 g/dL (30-36); MEAN PLATELET VOLUME 7.5 FL (6.5-11.5); RED BLOOD COUNT 3.57 X10e (3.90-5.30); RED CELL DISTRIBUTION WIDTH 14.9 % (11.0-15.5); WHITE BLOOD COUNT 6.8 X10e3 (4.0-10.5)
[2016-08-06 03:34] LABS: BLOOD UREA NITROGEN 5 mg/dL (9-23); CALCIUM SERUM 7.6 mg/dL (8.4-10.2); CARBON DIOXIDE 27 mmol/L (22-31); CHLORIDE 98 mmol/L (100-111); CREATININE SERUM 0.5 mg/dL (0.6-1.4); GLOM FILT RATE Estimated ABOVE60 mL/min (>60); GLUCOSE FASTING 132 mg/dL (70-110); PHOSPHOROUS 1.9 mg/dL (2.5-4.6); POTASSIUM 3.9 mmol/L (3.5-5.1); SODIUM 129 mmol/L (135-145)
[2016-08-07 02:56] LABS: HEMOGLOBIN 9.1 gm/dL (12.0-16.0); MEAN CELL VOLUME 84.5 FL (83-96); MEAN CORPUSCULAR HEMOGLOBIN 28.4 PG (28-34); MEAN CORPUSCULAR HGB CONC 33.6 g/dL (30-36); RED BLOOD COUNT 3.2 X10e (3.90-5.30); WHITE BLOOD COUNT 8.7 X10e3 (4.0-10.5)
[2016-08-07 03:35] LABS: BLOOD UREA NITROGEN 6 mg/dL (9-23); CALCIUM SERUM 7.6 mg/dL (8.4-10.2); CARBON DIOXIDE 26 mmol/L (22-31); CHLORIDE 97 mmol/L (100-111); CREATININE SERUM 0.5 mg/dL (0.6-1.4); GLOM FILT RATE Estimated ABOVE60 mL/min (>60); GLUCOSE FASTING 284 mg/dL (70-110); PHOSPHOROUS 2.9 mg/dL (2.5-4.6); SODIUM 128 mmol/L (135-145)
[2016-08-08 03:46] LABS: BASOPHIL# 0.1 X10e3 (0-0.3); BASOPHIL% 0.5 % (0-2.5); EOSINOPHIL# 0.5 X10e3 (0-0.7); EOSINOPHIL% 3.8 % (0.0-7.0); HEMATOCRIT 30.6 % (35.0-45.0); HEMOGLOBIN 10.1 gm/dL (12.0-16.0); LYMPHOCYTE# 1.5 X10e3 (1.0-3.5); LYMPHOCYTE% 12.2 % (17.0-45.0); MEAN CELL VOLUME 84.2 FL (83-96); MEAN CORPUSCULAR HEMOGLOBIN 27.8 PG (28-34); MEAN PLATELET VOLUME 7.8 FL (6.5-11.5); MONOCYTE# 0.9 X10e3 (0-1.0); MONOCYTE% 7.7 % (3.0-12.0); NEUTROPHIL# 9.2 X10e3 (1.5-7.1); NEUTROPHIL% 75.8 % (40-75); PLATELET COUNT 340 X10e3 (140-420); RED BLOOD COUNT 3.63 X10e (3.90-5.30); RED CELL DISTRIBUTION WIDTH 15.2 % (11.0-15.5); WHITE BLOOD COUNT 12.2 X10e3 (4.0-10.5)
[2016-08-08 03:49] LABS: DIFF IND NO
[2016-08-08 04:14] LABS: BLOOD UREA NITROGEN 9 mg/dL (9-23); CALCIUM SERUM 8.4 mg/dL (8.4-10.2); CARBON DIOXIDE 28 mmol/L (22-31); CHLORIDE 96 mmol/L (100-111); CREATININE SERUM 0.5 mg/dL (0.6-1.4); GLOM FILT RATE Estimated ABOVE60 mL/min (>60); GLUCOSE FASTING 101 mg/dL (70-110); MAGNESIUM 1.7 mg/dL (1.6-3.0); SODIUM 131 mmol/L (135-145)
== END 2016-08-08 12:50 | disposition home or self-care (01) | DRG 336 ==
LOC: CED 22:13 → CEDOF 08-02 01:41 → C4B 08-02 11:55 → C4C 08-04 14:24
PROVIDERS: Emergency Medicine; Family Medicine; Nurse Practitioner; Specialist; Surgery
PROC: 0DN80ZZ Release Small Intestine, Open Approach (ICD-10-PCS; 2016-08-04)
PROC: 02HV33Z Insertion of Infusion Device into Superior Vena Cava, Percutaneous Approach (ICD-10-PCS; 2016-08-04)
PROC: 4A02X4A Measurement of Cardiac Electrical Activity, Guidance, External Approach (ICD-10-PCS; 2016-08-04)
PROC: 0WUF0JZ Supplement Abdominal Wall with Synthetic Substitute, Open Approach (ICD-10-PCS; principal; 2016-08-04 09:30)
DX: K43.0 Incisional hernia with obstruction, without gangrene (principal); E87.1 Hypo-osmolality and hyponatremia; I10 Essential (primary) hypertension; D62 Acute posthemorrhagic anemia; E83.39 Other disorders of phosphorus metabolism; J44.9 Chronic obstructive pulmonary disease, unspecified; B19.20 Unspecified viral hepatitis C without hepatic coma; F31.9 Bipolar disorder, unspecified; M79.7 Fibromyalgia; E03.9 Hypothyroidism, unspecified; F17.210 Nicotine dependence, cigarettes, uncomplicated; Z90.710 Acquired absence of both cervix and uterus; Z88.1 Allergy status to other antibiotic agents; Z88.0 Allergy status to penicillin; Z88.2 Allergy status to sulfonamides; D72.829 Elevated white blood cell count, unspecified; K57.90 Diverticulosis of intestine, part unspecified, without perforation or abscess without bleeding; R59.1 Generalized enlarged lymph nodes; E87.6 Hypokalemia; F41.9 Anxiety disorder, unspecified
CPT/HCPCS: 36415; 51701; 71010; 74000; 74177; 74250; 80048; 80053; 80076; 81003; 82947; 83036; 83690; 83735; 83930; 84100; 84134; 84300; 84439; 84443; 85014; 85018; 85025; 85027; 85610; 87040; 87045; 87427; 87493; 87806; 87899; 88302; 94760; 96361; 96374; 99285; C1781; C9113; J0330; J1170; J1650; J2060; J2250; J2270; J2405; J2550; J2710; J3010; Q9967